=== PATIENT | male | born 1965 | race Asian ===

== ENCOUNTER 2020-08-11 09:15 | Emergency (ER) | payer OTHER, SELFPAY ==
[~2020-08-11] VITALS: Ht 177.8 cm; Wt 81.6 kg
[2020-08-11 09:19] VITALS: Ht 177.8 cm; Wt 81.6 kg
[2020-08-11 12:15] VITALS: BP 122/76
== END 2020-08-11 12:15 | disposition home or self-care (01) ==
LOC: ED 09:15
DX: U07.1 COVID-19 (principal); J12.89 Other viral pneumonia